=== PATIENT | female | born 1950 | race African-American/Black ===

== ENCOUNTER 2017-06-02 06:03 | Emergency (ER) | payer MEDICARE, OTHER ==
[~2017-06-02] VITALS: Ht 149.9 cm; Wt 77.0 kg
[2017-06-02] MEDS ORDERED: IBUPROFEN 800MG TABLET PO ONE (06:30)
[2017-06-02 07:23] LABS: CLARITY URINE CLEAR (CLEAR); COLOR URINE YELLOW (YELLOW); GLUCOSE URINE NEGATIVE (NEGATIVE); KETONES URINE NEGATIVE (NEGATIVE); LEUKOCYTE ESTERASE URINE 1+ (NEGATIVE); NITRITE URINE NEGATIVE (NEGATIVE); OCCULT BLOOD URINE NEGATIVE (NEGATIVE); PH URINE 5.5 (4.5-8.0); PROTEIN URINE NEGATIVE (NEGATIVE); SPECIFIC GRAVITY URINE 1.012 (1.005-1.030)
[2017-06-02] MEDS ORDERED: HYDROCODONE/ACETAMINOPHEN 5/325MG TABLET PO ONE (08:30)
[2017-06-02 08:45] VITALS: BP 151/86
== END 2017-06-02 09:14 | disposition home or self-care (01) ==
LOC: ER 06:18
DX: N39.0 Urinary tract infection, site not specified (principal)
CPT/HCPCS: 81001; 99283

== ENCOUNTER 2018-06-01 23:00 | Emergency (ER) | payer MEDICARE, OTHER ==
[~2018-06-01] VITALS: Ht 167.6 cm; Wt 87.0 kg
[2018-06-02] MEDS ORDERED: ONDANSETRON 4MG ODT PO STA (00:02)
[2018-06-02] MEDS ORDERED: MORPHINE SULFATE 4 MG/ML CPJ (NOT FOR IM USE) IV STA (00:02)
[2018-06-02 00:36] LABS: HEMATOCRIT. 40.2 % (36.0-48.0); HEMOGLOBIN. 13.6 g/dL (12.0-16.0); MEAN CORPUSCULAR VOLUME 88.8 fL (81.0-99.0); MEAN PLATELET VOLUME 8.3 fl (7.4-10.4); PLATELET 288 x1000/uL (130-400); RED BLOOD CELL COUNT 4.52 mill/uL (4.2-5.4); RED CELL DISTRIBUTION WIDTH 14.9 % (11.6-14.6)
[2018-06-02 00:43] LABS: CHLORIDE 110 mEq/L (98-107)
[2018-06-02 00:44] LABS: INR 1.1; PROTHROMBIN TIME 10.6 sec (9.1-11.1)
[2018-06-02] MEDS ORDERED: SODIUM CHLORIDE 0.9% 1,000 ML IV ONE (01:50)
[2018-06-02] MEDS ORDERED: MORPHINE SULFATE 4 MG/ML CPJ (NOT FOR IM USE) IV ONE ×2 (02:00→03:30)
[2018-06-02 02:16] LABS: PLATELET ESTIMATE NORMAL
[2018-06-02 03:32] LABS: CLARITY URINE CLOUDY (CLEAR); COLOR URINE YELLOW (YELLOW); KETONES URINE TRACE (NEGATIVE); LEUKOCYTE ESTERASE URINE 2+ (NEGATIVE); NITRITE URINE NEGATIVE (NEGATIVE); OCCULT BLOOD URINE NEGATIVE (NEGATIVE); PH URINE 6.5 (4.5-8.0); PROTEIN URINE TRACE (NEGATIVE); SPECIFIC GRAVITY URINE 1.053 (1.005-1.030)
[2018-06-02] MEDS ORDERED: MAGNESIUM/ALUMINUM HYDROXIDE/SIMETHICONE 30ML UDC PO STA (04:14)
[2018-06-02] MEDS ORDERED: DICYCLOMINE 10 MG/5 ML ORAL SYR PO STA (04:14)
[2018-06-02] MEDS ORDERED: VISCOUS LIDOCAINE 2% 15 ML UDC PO STA (04:14)
[2018-06-02] MEDS ORDERED: IOHEXOL-300 100 ML BOTTLE ONE (04:24)
[2018-06-02 05:42] VITALS: BP 172/97
== END 2018-06-02 05:48 | disposition home or self-care (01) ==
LOC: ER 23:00
DX: R10.84 Generalized abdominal pain (principal); R11.2 Nausea with vomiting, unspecified; G89.29 Other chronic pain; Z98.890 Other specified postprocedural states
CPT/HCPCS: 36415; 74177; 80053; 81003; 83690; 85025; 85610; 93005; 96361; 96374; 96376; 99285; J2270; J7030; Q0162; Q9967